=== PATIENT | male | born 1970 | race African-American/Black ===

== ENCOUNTER 2020-07-12 09:32 | Emergency (ER) | payer OTHER ==
[~2020-07-12] VITALS: Ht 165.1 cm; Wt 68.0 kg
[2020-07-12 10:57] LABS: CLARITY URINE CLOUDY (CLEAR); COLOR URINE YELLOW (YELLOW); KETONES URINE TRACE (NEGATIVE); LEUKOCYTE ESTERASE URINE 1+ (NEGATIVE); NITRITE URINE NEGATIVE (NEGATIVE); OCCULT BLOOD URINE NEGATIVE (NEGATIVE); PROTEIN URINE TRACE (NEGATIVE); SPECIFIC GRAVITY URINE 1.029 (1.005-1.030); UROBILINOGEN URINE 0.2 E.U./dL (0.2-1.0)
[2020-07-12 14:58] VITALS: BP 155/85
== END 2020-07-12 15:13 | disposition left against medical advice (07) ==
LOC: ER 10:07 → EDBEDREQ 14:35 → EDBEDREQTM 14:35 → CANBEDREQ 15:06 → ER 15:13
DX: T82.898A Other specified complication of vascular prosthetic devices, implants and grafts, initial encounter (principal); N39.0 Urinary tract infection, site not specified; I10 Essential (primary) hypertension; Z87.890 Personal history of sex reassignment; Y83.8 Other surgical procedures as the cause of abnormal reaction of the patient, or of later complication, without mention of misadventure at the time of the procedure; Y92.018 Other place in single-family (private) house as the place of occurrence of the external cause
CPT/HCPCS: 71045; 81003; 99284